=== PATIENT | female | born 1955 | race Caucasian/White ===

== ENCOUNTER 2022-06-09 14:49 | Outpatient (REF) | payer OTHER, SELFPAY ==
--- NOTE | 2022-06-09 14:15 | NASALBX_PTH ---
PATIENT: Bety Dave LOC: [facility] U#:[id number] AGE/SX: 66/F ROOM: RE06/09/[address]: Ariana Jorge : 1955 BED: DIS: 06/09/2022 SPEC #: [id number] RECD: 06/09/22 18:13 STATUS: ALTAF REQ #: [id number] MINDY: 06/09/22 14:[address]: Ariana Jorge DEPT: Surgical Specimen RECD BY: Adelaide Grant ENTERED: 06/09/22 18:14 SP TYPE: NASALBX OTHR DR: Dustin Ca MD Tissues: 1 - NASAL SEPTUM Procedures: GROSS AND MICRO LEVEL 4 SPECIAL STAIN 1 Comments: [id number]
== END 2022-06-09 14:50 | disposition home or self-care (01) ==
LOC: LBN 14:49
PROVIDERS: PCP Otolaryngology; Visit Provider Registered Nurse Maternal Newborn
DX: J34.81 Nasal mucositis (ulcerative) (principal)
CPT/HCPCS: 88300; 88305; 88312